=== PATIENT | female | born 1980 ===

== ENCOUNTER 2018-07-11 09:55 | Emergency (ER) | payer OTHER ==
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
[2018-07-11 12:02] VITALS: BP 126/70; PULSE 77; RESP 16; TEMP 98.5; O2SAT 100
== END 2018-07-11 12:03 | disposition home or self-care (01) ==
LOC: H.ER 09:55
DX: Z04.41 Encounter for examination and observation following alleged adult rape (principal); Z97.5 Presence of (intrauterine) contraceptive device